=== PATIENT | male | born 1985 | race Caucasian/White ===

== ENCOUNTER 2018-06-05 22:18 | Emergency (ER) | payer MEDICAID ==
[~2018-06-05] VITALS: Ht 177.8 cm; Wt 68.2 kg
[2018-06-05 22:22] VITALS: Ht 177.8 cm; Wt 68.2 kg
[2018-06-05] MEDS ORDERED: PRISTIQ50 MG PO (22:23)
[2018-06-05] MEDS ORDERED: BUSPAR 15 MG TA15 MG PO (22:23)
[2018-06-05] MEDS ORDERED: TRUVADA 200 MG1 EACH PO (22:23)
[2018-06-05] MEDS ORDERED: HYDROCODON-ACE1 EAC7 PO (23:10)
[2018-06-06 00:13] VITALS: BP 132/77
== END 2018-06-06 00:13 | disposition home or self-care (01) ==
LOC: D.ER 22:18
DX: S01.112A Laceration without foreign body of left eyelid and periocular area, initial encounter (principal); S01.01XA Laceration without foreign body of scalp, initial encounter; W19.XXXA Unspecified fall, initial encounter